=== PATIENT | female | born 1985 | race Two or more races ===

== ENCOUNTER 2021-09-04 19:40 | Emergency (ER) | payer BC, OTHER ==
[~2021-09-04] VITALS: Ht 170.2 cm; Wt 84.5 kg
[2021-09-04 20:02] VITALS: BP 156/87
== END 2021-09-05 05:07 | disposition home or self-care (01) ==
LOC: ER 19:40
DX: S96.911A Strain of unspecified muscle and tendon at ankle and foot level, right foot, initial encounter (principal); W22.8XXA Striking against or struck by other objects, initial encounter; Y93.89 Activity, other specified; Y92.89 Other specified places as the place of occurrence of the external cause; Y99.8 Other external cause status
CPT/HCPCS: 73630